=== PATIENT | male | born 1960 | race Caucasian/White ===

== ENCOUNTER 2020-03-10 23:29 | Observation (INO) ==
[2020-03-10] MEDS ORDERED: NITROGLYCERIN SL 0.4 MG/TAB TAB SL STA (23:45)
[2020-03-10] MEDS ORDERED: SODIUM CHLORIDE 0.9% 1000ML 1,000 ML IV ONE (23:45)
[2020-03-10] MEDS ORDERED: ASPIRIN 81 MG CHEW PO STA (23:45)
--- NOTE | 2020-03-10 23:50 | Emergency Department Note ---
Impression & Plan Left-sided chest pain, A-fib ED Provider Note Name: JOHAN MARCOS Age: 60 Sex: M Arrives Via: Walk-In Informant: Patient ED Provider: Roldan Montero MD Chief Complaint: Chest pain Impression: Left Sided Chest Pain A-Fib Medical Decision Makin yr old male with history paroxysmal Afib though no previous CAD/Stenting arrives with 3 days waxing/waning left chest pain associated with palpations. Chest pain resolved with several doses of SLNTG and placed nitro paste. Given ASA 324mg PO as well. CXR clear, EKG with afib no stemi x 2, labs with negative trop. He is on eliquis and I feel PE unlikely. Dissection not consistent with symptoms. With history will need cardiac rule out. Suspect given symptomatic afib may require cardioversion if doesn't break overnight though with pain controlled, normal trop and no Stemi I do not feel emergent cardioversion indicated at this time. Prior Medical Record and Triage/Nursing Notes reviewed by Me Additional history obtained from chart Differentials:Premature contractions, electrolyte abnormality, cardiac dysrhythmia, thyroid dysfunction, pulmonary embolism, infection, gastrointestinal, as well as other pathologies. Vital Signs: reviewed and remarkable for no significant abnormalities Interventions: saline lock, slntg x 3, nitrop paste, nss bolus Labs:Reviewed and remarkable for no significant abnormalities Imaging:X ray results are stated below per my interpretation: Chest: 1 view: No infiltrate, no effusion, normal cardiac border. EKG:Per My Interpretation: Indication Chest Pain: Afib 97 bpm, qtc [address] depression. No previous EKG for comparison. Cardiac/Tele Monitoring: Cardiac Monitoring: An Order was placed for continuous cardiac monitoring. The monitor shows a rate of 90 with a afib rhythm. Consults:Dr Erinn Elliott Hospitalist Plan: Disposition:Hospitalization. Condition: Good History of Present Illness:60 yr old male arrives for evaluation of chest pain. Patient notes 3 days of chest pains. Notes left tight chest pressure. Associated with palpitations similar to previous Afib. Seems worse with exertion, better with rest. Mild associated shortness of breath. No radiation of pain. No inciting incident. No new medications taken for this. He is on Tikosyn and Eliquis for his afib. Notes previous cardiac arrest though denies previous heart catheterizations. States he has felt well for some time until the last few days. No trauma nor injuries. Denies fevers, chills, syncope, headache, neck pain, rashes, leg swelling, calf pain, abdominal pain, urinary symptoms, nor other symptoms. Patient notes he is no usually in Afib and it has been some time since last irregular. ROS: See above HPI for pertinent positives & negatives. A total of 10 systems reviewed and were otherwise negative. Past Medical History:Afib, Hyperlipidemia Past Surgical History:Back surgery Family History:Father [place] 65yrs old Social History:Retired though still drives elderly to appointments, no etoh/drugs/tobacco Home Medications:Tikosyn, Eliquis, HLP medication Allergies:None Vitals:Blood Pressure: 97, Pulse 96, RR 16, T 36.5C, O2 95% on RA Physical Exam: GENERAL: Patient is anxious appearing and in mild distress. EYES: No scleral icterus, unremarkable pupils. ENT: Mucous membranes moist, no nasal congestion. NECK: No masses appreciated, nomeningismus, trachea is midline. RESPIRATORY: No dyspnea. Clear to auscultation and equal bilaterally. No wheeze, no rhonchi. CARDIOVASCULAR: Irregular.No murmurs, rubs, gallops appreciated. GASTROINTESTINAL: Abdomen soft, non-tender, no peritonitis.Bowel sounds positive.No masses appreciated. BACK: No midline tenderness, no CVA tenderness EXTREMITIES: Normal motion all extremities, no cyanosis, no edema. NEUROLOGIC: Alert and oriented, no acute motor or sensory deficits, no focal weakness, cranial nerves grossly intact. SKIN: No rash, no jaundice, no diaphoresis. PSYCH: Appropriate GCS: 15 ED Course: Times/Reassessments: Gradually improving pain, agreeable to hospitalization Roldan Montero MD Past Med/Surg History Social History Smoking Status: Never smoker Hx Alcohol Use: No Hx Substance Use: No Preferred Language: Lithuanian Communication Ability: Effective Beliefs That Will Affect Care: None Current Living Situation: Spouse Other Information That Helps Us Care for You: No Feels Safe at Home: Yes Safety Concerns: Feels Safe At This Time Assistive Devices: Glasses Allergies Allergies Allergy/AdvReac Type Severity Reaction Status Date / Time No Known Allergies Allergy Unverified 03/11/20 00:40 Home Meds Home Medications Medication Instructions Recorded Confirmed allopurinol 300 mg PO DAILY 03/11/20 03/11/20 apixaban [Eliquis] 5 mg PO BID 03/11/20 03/11/20 colchicine 0.6 mg PO BID PRN 03/11/20 03/11/20 dofetilide [Tikosyn] 125 mcg PO Q12H 03/11/20 03/11/20 furosemide [Lasix] 20 mg PO DAILY PRN 03/11/20 03/11/20 lisinopril 5 mg PO DAILY 03/11/20 03/11/20 metoprolol succinate [Toprol XL] 25 mg PO BID 03/11/20 03/11/20 omega-3 fatty acids [[place] 3 Fish 1,000 mg PO DAILY 03/11/20 03/11/20 Oil Concentrate] Results & Data (ED) Vital Signs Vital Signs - 24 hr 03/10/20 23:51 03/11/20 00:05 03/11/20 00:12 Pulse Rate 94 H 96 H Pulse Rate from SpO2 Sensor Respiratory Rate 19 20 Respiratory Effort / Characteristics Non-Labored Spontaneous Respiratory Depth Normal Blood Pressure 142/97 H 126/96 Blood Pressure Mean 112 106 Blood Pressure Position Sitting Pulse Oximetry 96 Oxygen Delivery Method Room Air Room Air Sepsis Recent Fever Within 48 Hours No Sepsis New/Unexplained Change in Mental Status No Sepsis Action Taken by Nursing No Action Required 03/11/20 00:30 03/11/20 00:49 03/11/20 01:00 Pulse Rate 98 H 98 H 86 Pulse Rate from SpO2 Sensor 90 99 H Respiratory Rate 19 18 19 Respiratory Effort / Characteristics Respiratory Depth Blood Pressure 125/85 129/86 117/79 Blood Pressure Mean 98 100 91 Blood Pressure Position Pulse Oximetry 97 95 Oxygen Delivery Method Sepsis Recent Fever Within 48 Hours Sepsis New/Unexplained Change in Mental Status Sepsis Action Taken by Nursing 03/11/20 01:30 03/11/20 02:00 03/11/20 02:14 Pulse Rate 80 88 Pulse Rate from SpO2 Sensor 67 79 Respiratory Rate 18 16 Respiratory Effort / Characteristics Respiratory Depth Blood Pressure 103/83 100/74 Blood Pressure Mean 89 82 Blood Pressure Position Pulse Oximetry 97 97 Oxygen Delivery Method Room Air Sepsis Recent Fever Within 48 Hours Sepsis New/Unexplained Change in Mental Status Sepsis Action Taken by Nursing Laboratory Data Result diagrams: 03/10/20 23:57 03/10/20 23:57 Lab Results 03/10/20 03/10/20 03/10/20 Range/Units 23:57 23:57 23:57 WBC 8.36 (4.8-10.8) K/uL RBC 5.67 (4.7-6.1) M/uL Hgb 17.6 (14.0-18.0) g/dL Hct 51.5 (42-52) % MCV 90.8 (80-100) fL MCH 31.0 (25-34) pg MCHC 34.2 (32-36) g/dL RDW Std Deviation 46.7 H (36.4-46.3) fL RDW Coeff of Mario 13.9 (11.5-14.5) % Plt Count 270 (130-400) K/uL MPV 11.2 H (7.4-10.4) fL Immature Gran % (Auto) 0.2 % Neut % (Auto) 43.8 % Lymph % (Auto) 41.1 % Atlantic % (Auto) 12.2 % Eos % (Auto) 2.3 % Baso % (Auto) 0.4 % Neut # (Auto) 3.66 (1.4-6.5) K/uL Lymph # (Auto) 3.44 H (1.2-3.4) K/uL [place] # (Auto) 1.02 H (0.11-0.59) K/uL Eos # (Auto) 0.19 (0-0.5) K/uL Baso # (Auto) 0.03 (0-0.2) K/uL Immature Gran # (Auto) 0.02 (0.00-0.02) K/uL PT 11.6 (9.0-12.0) Seconds INR 1.1 (0.9-1.1) APTT 29.0 (21.0-31.0) Seconds PTT Ratio 1.0 Sodium 144 (136-145) mmol/L Potassium 3.8 (3.5-5.1) mmol/L Chloride 110 H (98-107) mmol/L Carbon Dioxide 30 (21-32) mmol/L Anion Gap 4.0 (3-11) BUN 16 (7-18) mg/dl Creatinine 0.99 (0.6-1.4) mg/dl Est Cr Clr Drug Dosing 86.0 ml/min Est GFR ( Amer) 94.9 Est GFR (Non-Af Amer) 81.9 BUN/Creatinine Ratio 16.0 (10-20) Glucose 63 L (70-99) mg/dl Calcium 9.2 (8.5-10.1) mg/dl Magnesium 2.3 (1.8-2.4) mg/dl Total Bilirubin 0.6 (0.2-1) mg/dl Direct Bilirubin < 0.1 (0-0.2) mg/dl AST 22 (15-37) U/L ALT 45 (12-78) U/L Alkaline Phosphatase 109 (45-117) U/L Troponin I < 0.015 (0-0.045) ng/ml Total Protein 6.8 (6.4-8.2) gm/dl Albumin 3.8 (3.4-5.0) gm/dl TSH 2.870 (0.300-4.500) uIu/ml COVID-19 Eval Order SARS-CoV-2, RNA, NAAT (NEGATIVE) 03/11/20 03/11/20 Range/Units 00:20 00:20 WBC (4.8-10.8) K/uL RBC (4.7-6.1) M/uL Hgb (14.0-18.0) g/dL Hct (42-52) % MCV (80-100) fL MCH (25-34) pg MCHC (32-36) g/dL RDW Std Deviation (36.4-46.3) fL RDW Coeff of Mario (11.5-14.5) % Plt Count (130-400) K/uL MPV (7.4-10.4) fL Immature Gran % (Auto) % Neut % (Auto) % Lymph % (Auto) % Atlantic % (Auto) % Eos % (Auto) % Baso % (Auto) % Neut # (Auto) (1.4-6.5) K/uL Lymph # (Auto) (1.2-3.4) K/uL [place] # (Auto) (0.11-0.59) K/uL Eos # (Auto) (0-0.5) K/uL Baso # (Auto) (0-0.2) K/uL Immature Gran # (Auto) (0.00-0.02) K/uL PT (9.0-12.0) Seconds INR (0.9-1.1) APTT (21.0-31.0) Seconds PTT Ratio Sodium (136-145) mmol/L Potassium (3.5-5.1) mmol/L Chloride (98-107) mmol/L Carbon Dioxide (21-32) mmol/L Anion Gap (3-11) BUN (7-18) mg/dl Creatinine (0.6-1.4) mg/dl Est Cr Clr Drug Dosing ml/min Est GFR ( Amer) Est GFR (Non-Af Amer) BUN/Creatinine Ratio (10-20) Glucose (70-99) mg/dl Calcium (8.5-10.1) mg/dl Magnesium (1.8-2.4) mg/dl Total Bilirubin (0.2-1) mg/dl Direct Bilirubin (0-0.2) mg/dl AST (15-37) U/L ALT (12-78) U/L Alkaline Phosphatase (45-117) U/L Troponin I (0-0.045) ng/ml Total Protein (6.4-8.2) gm/dl Albumin (3.4-5.0) gm/dl TSH (0.300-4.500) uIu/ml COVID[facility]19 [facility], RNA, NAAT NEGATIVE (NEGATIVE) Administered Medications Discontinued Medications Aspirin (Aspirin 81 Mg Chew) 324 mg PO NOW STA Stop: 03/10/20 23:46 Last Admin: 03/11/20 00:08 Dose: 324 mg Documented by: [id number] Dextrose (Dextrose 50% 50 Ml Syringe) 50 ml IV NOW ONE Stop: 03/11/20 00:53 Last Admin: 03/11/20 01:01 Dose: Not Given Documented by: [id number] Dextrose (Dextrose 50% 50 Ml Syringe) 25 ml IV NOW ONE Stop: 03/11/20 00:56 Last Admin: 03/11/20 01:00 Dose: 25 ml Documented by: [id number] Sodium Chloride (Nss 1000ml) 1,000 mls @ 999 mls/hr IV .Q1H1M ONE Stop: 03/11/20 00:45 Last Infusion: 03/11/20 00:43 Dose: 0 mls/hr Documented by: [id number] Admin: 03/11/20 00:10 Dose: 999 mls/hr Documented by: [id number] Nitroglycerin (Nitroglycerin Sl 0.4 Mg/Tab Tab) 0.4 mg SL NOW STA Stop: 03/10/20 23:46 Last Admin: 03/11/20 00:09 Dose: 0.4 mg Documented by: [id number] Nitroglycerin (Nitroglycerin 2% Ointment 30gm Tube) 1 inch EXT NOW ONE Stop: 03/11/20 00:28 Last Admin: 03/11/20 00:43 Dose: 1 inch Documented by: [id number] Discharge Plan Visit Data Chief Complaint: Chest Pain Stated Complaint: CHEST PAIN; CARDIAC HISTORY ED Provider: Roldan Montero Discharge Problem: Left-sided chest pain, A-fib Patient Disposition: Admitted As Inpatient Discharge Instructions Interventions: ED Discharge Assessment Last Done: 03/11/20 02:14 Discharge Problem: A-fib Qualifiers: Atrial fibrillation type: paroxysmal Qualified Code(s): I48.0 - Paroxysmal atrial fibrillation
[2020-03-11 00:25] LABS: Basophils # (auto) 0.03 K/uL (0-0.2); Basophils % (auto) 0.4 %; Eosinophils # (auto) 0.19 K/uL (0-0.5); Eosinophils % (auto) 2.3 %; Hematocrit (blood only) 51.5 % (42-52); Hemoglobin 17.6 g/dL (14.0-18.0); Immature Granulocytes # (auto) 0.02 K/uL (0.00-0.02); Immature Granulocytes % (auto) 0.2 %; Lymphocytes # (auto) 3.44 K/uL (1.2-3.4); Lymphocytes % (auto) 41.1 %; Mean Corpuscular Hgb Conc 34.2 g/dL (32-36); Mean Corpuscular Volume 90.8 fL (80-100); Mean Platelet Volume 11.2 fL (7.4-10.4); Monocytes # (auto) 1.02 K/uL (0.11-0.59); Monocytes % (auto) 12.2 %; Neutrophils # (auto) 3.66 K/uL (1.4-6.5); Neutrophils % (auto) 43.8 %; Platelet Count 270 K/uL (130-400); RDW Coefficient of Variation 13.9 % (11.5-14.5); RDW Standard Deviation 46.7 fL (36.4-46.3); Red Blood Count 5.67 M/uL (4.7-6.1); White Blood Count 8.36 K/uL (4.8-10.8)
[2020-03-11] MEDS ORDERED: NITROGLYCERIN 2% OINTMENT 30GM TUBE EXT ONE (00:27)
[2020-03-11 00:34] LABS: INR 1.1 (0.9-1.1); Prothrombin Time 11.6 Seconds (9.0-12.0)
[2020-03-11 00:39] LABS: Alanine Aminotransferase 45 U/L (12-78); Albumin Level 3.8 gm/dl (3.4-5.0); Aspartate Aminotransferase 22 U/L (15-37); Bilirubin Direct < 0.1 mg/dl (0-0.2); Blood Urea Nitrogen 16 mg/dl (7-18); Calcium 9.2 mg/dl (8.5-10.1); Carbon Dioxide 30 mmol/L (21-32); Chloride 110 mmol/L (98-107); Est GFR (African American) 94.9; Est GFR (Non-African American) 81.9; Glucose 63 mg/dl (70-99); Magnesium 2.3 mg/dl (1.8-2.4); Potassium 3.8 mmol/L (3.5-5.1); Sodium 144 mmol/L (136-145)
[2020-03-11 00:50] LABS: Alkaline Phosphatase 109 U/L (45-117); Bilirubin,Total 0.6 mg/dl (0.2-1); Total Protein 6.8 gm/dl (6.4-8.2); Troponin I < 0.015 ng/ml (0-0.045)
[2020-03-11] MEDS ORDERED: DEXTROSE 50% 50 ML SYRINGE IV ONE ×2 (00:52→00:55)
[2020-03-11] MEDS ORDERED: NITROGLYCERIN SL 0.4 MG/TAB TAB SL PRN (02:32)
[2020-03-11] MEDS ORDERED: ACETAMINOPHEN 325 MG TAB PO PRN (02:32)
[2020-03-11] MEDS ORDERED: FUROSEMIDE 20 MG TAB PO PRN (02:32)
[2020-03-11 05:09] LABS: Basophils # (auto) 0.04 K/uL (0-0.2); Basophils % (auto) 0.5 %; Eosinophils # (auto) 0.11 K/uL (0-0.5); Eosinophils % (auto) 1.5 %; Hematocrit (blood only) 46.2 % (42-52); Hemoglobin 15.9 g/dL (14.0-18.0); Immature Granulocytes # (auto) 0.03 K/uL (0.00-0.02); Immature Granulocytes % (auto) 0.4 %; Lymphocytes # (auto) 2.85 K/uL (1.2-3.4); Lymphocytes % (auto) 38.7 %; Mean Corpuscular Hemoglobin 31.4 pg (25-34); Mean Corpuscular Hgb Conc 34.4 g/dL (32-36); Mean Corpuscular Volume 91.1 fL (80-100); Mean Platelet Volume 10.9 fL (7.4-10.4); Monocytes # (auto) 0.81 K/uL (0.11-0.59); Neutrophils # (auto) 3.53 K/uL (1.4-6.5); Neutrophils % (auto) 47.9 %; Platelet Count 235 K/uL (130-400); RDW Coefficient of Variation 13.9 % (11.5-14.5); RDW Standard Deviation 45.9 fL (36.4-46.3); Red Blood Count 5.07 M/uL (4.7-6.1); White Blood Count 7.37 K/uL (4.8-10.8)
[2020-03-11 05:33] LABS: Blood Urea Nitrogen 15 mg/dl (7-18); Calcium 8.4 mg/dl (8.5-10.1); Carbon Dioxide 32 mmol/L (21-32); Chloride 113 mmol/L (98-107); Est GFR (African American) 107.5; Est GFR (Non-African American) 92.7; Glucose 96 mg/dl (70-99); Magnesium 2.2 mg/dl (1.8-2.4); Potassium 3.9 mmol/L (3.5-5.1); Sodium 144 mmol/L (136-145)
[2020-03-11 05:38] LABS: Troponin I < 0.015 ng/ml (0-0.045)
[2020-03-11] MEDS ORDERED: DOFETILIDE 125 MCG CAPSULE PO SCH (06:00)
--- NOTE | 2020-03-11 07:02 | XRay Report ---
XR chest 1V portable CLINICAL HISTORY: Atypical chest pain COMPARISON STUDY: No previous studies for comparison. FINDINGS: The heart is enlarged. There is no overt failure. There is no lobar consolidation. Increase d basilar markings are likely atelectatic. There are no significant pleural effusions[ IMPRESSION: Cardiomegaly and minor basilar atelectasis ACT 112: Negative or not required by law. Electronically signed by: Gael Dow M.D. 03/11/2020 7:01 AM
[2020-03-11] MEDS ORDERED: lisinopril 5 MG TAB PO SCH (09:00)
[2020-03-11] MEDS ORDERED: allopurinoL 300 MG TAB PO SCH (09:00)
[2020-03-11] MEDS ORDERED: METOPROLOL SUCC 25MG EXT REL TAB PO SCH (09:00)
[2020-03-11] MEDS ORDERED: APIXABAN 5 MG TABLET PO SCH (09:00)
--- NOTE | 2020-03-11 09:20 | History and Physical Report ---
DATE OF ADMISSION: 03/11/2020 CHIEF COMPLAINT: Chest pain. HISTORY OF PRESENT ILLNESS: This is a 60-year-old male with past medical history significant for hyperlipidemia, dyspnea on exertion, atrial fibrillation, history of systolic heart failure, cardiomyopathy, history of lumbar disk herniation with radiculopathy, who presents with chest pain. The patient has been having chest pain in the left side for the last 2-3 days, but yesterday it got worse. No radiation, not associated with any nausea or dizziness or sweating, no shortness of breath. In the ER pain was intially 8/10 in severity, after nitro it has come 6/10. Currently resting comfortably and hemodynamically stable. Denies any cough, no fever, no chills, no headache, no blurred vision, no earache, no runny nose, no sore throat, no loss of sense of smell or taste. No nausea, no abdominal pain. Normal bowel and bladder movements. ALLERGIES: No known drug allergies. PAST MEDICAL HISTORY: As mentioned above. PAST SURGICAL HISTORY: Colonoscopies, colonoscopy with biopsies, lumbar laminectomy, lumbar hemilaminectomy, tonsillectomy. MEDICATIONS: The patient is on allopurinol 10 mg p.o. daily, Eliquis 5 mg p.o. b.i.d., Tikosyn 125 mcg p.o. q.12 hours, Lasix 20 mg p.o. daily p.r.n., lisinopril 5 mg p.o. daily, metoprolol succinate 25 mg p.o. b.i.d., omega fatty acids 1 gram p.o. daily. FAMILY HISTORY: No family history in file. SOCIAL HISTORY: . No smoking. Alcohol occasional. No drug use. REVIEW OF SYMPTOMS: As per HPI. Rest of review of systems negative. PHYSICAL EXAMINATION: GENERAL: The patient is of moderate build, not in acute distress. VITAL SIGNS: Temperature 36.5, pulse 58, respiratory rate 18, blood pressure 100/65, oxygen 95% on room air. HEENT: Pupils equal, round, reactive to light. Oral mucosa moist. NECK: No JVD. No neck masses. CARDIOVASCULAR: S1, S2, regular rate and rhythm, no murmur, no gallop. RESPIRATORY SYSTEM: Normal AP diameter. No accessory muscle use. No wheezing, no crackles. ABDOMEN: Soft, bowel sounds present, nontender. No distention. CENTRAL NERVOUS SYSTEM: Cranial nerves II-XII grossly intact. Nonfocal. EXTREMITIES: No edema, no erythema. LABORATORY DATA: WBC 7.3, hemoglobin 15.9, hematocrit 46.2, platelets 235. PT 11.6, INR 1.1, APTT 29. Sodium 144, potassium 3.9, chloride 113, CO2 32, BUN 15, creatinine 0.8, serum glucose 96, calcium 8.4, magnesium 2.2, total bilirubin 0.6, direct bilirubin less than 0.1, AST 22, ALT 45, alkaline phosphatase 109. Troponin I less than 0.015. TSH 2.8. SARS-CoV-2 RNA negative. Chest x-ray, cardiomegaly and minor bibasilar atelectasis. EKG: Atrial fibrillation, rate 88, nonspecific, no acute ST changes seen. ASSESSMENT AND PLAN: This 60-year-old male presents with chest pain. 1. Chest pain, rule out acute coronary syndrome. Initial workup is negative. We will follow serial enzymes, echo and keep n.p.o. and consult cardiology in a.m. for further recommendations. 2. History of atrial fibrillation, continue his Tikosyn , Toprol xl and Eliquis. EKG shows patient is in atrial fibrillation, rate controlled. We will monitor in tele. 3. History of systolic congestive heart failure and dilated cardiomyopathy. Recent echo in 08/2018 EF was 55%. The patient is on Lasix p.r.n. and on lisinopril and Toprol-XL. 4. Deep venous thrombosis prophylaxis, on Eliquis. DISPOSITION: Observation in tele floor. Expect to discharge home and follow with family doctor. GUILLAUME
--- NOTE | 2020-03-11 09:34 | Cardiology Consultation ---
Date of Consultation Patient was admitted with chest discomfort and palpitations consistent with atrial fibrillation. His chest discomfort is very similar to what he had with his previous episodes of pericarditis. His chest pain is worse lying flat or on his left side or taking a deep breath. It started over the weekend and became more progressive yesterday at work. He also noted palpitations in the afternoon which was unusual for him. He has not had any symptomatic episodes of atrial fibrillation since he was at [facility]. He denies any shortness of breath. He denies any presyncope syncope or falls he had some mild lightheadedness yesterday. He denies a cough fevers chills or sweats. He denies any sick contacts. He did have his first Covid vaccine ([place]) approximately 3 weeks ago without any side effects. He denies any bleeding or bruising dark stools or black stools. His appetite and weight have been stable. March 11, 2020 History of Present Illness Attending Physician: Abhishek Aldana MD Allergies Allergy/AdvReac Type Severity Reaction Status Date / Time No Known Allergies Allergy Unverified 03/11/20 00:40 Home Medications Medication Instructions Recorded Confirmed Type allopurinol 300 mg PO DAILY 03/11/20 03/11/20 History apixaban [Eliquis] 5 mg PO BID 03/11/20 03/11/20 History colchicine 0.6 mg PO BID PRN 03/11/20 03/11/20 History dofetilide [Tikosyn] 125 mcg PO Q12H 03/11/20 03/11/20 History furosemide [Lasix] 20 mg PO DAILY PRN 03/11/20 03/11/20 History lisinopril 5 mg PO DAILY 03/11/20 03/11/20 History metoprolol succinate [Toprol XL] 25 mg PO BID 03/11/20 03/11/20 History omega-3 fatty acids [[place] 3 Fish 1,000 mg PO DAILY 03/11/20 03/11/20 History Oil Concentrate] Patient History Social History Smoking Status: Never smoker Hx Alcohol Use: No Hx Substance Use: No Preferred Language: Guyanese Communication Ability: Effective Beliefs That Will Affect Care: None Current Living Situation: Spouse Other Information That Helps Us Care for You: No Feels Safe at Home: Yes Safety Concerns: Feels Safe At This Time Assistive Devices: Glasses Results & Data ([facility]) Vital Signs (Past 12 Hours) Vital Signs Temp Pulse Pulse Resp BP BP Pulse Ox 03/11/20 08:04 58 L 0 L 100/65 03/11/20 08:00 36.8 C 58 L 18 03/11/20 07:58 59 L 14 97/71 L 03/11/20 07:55 58 L 20 84/55 L 03/11/20 07:30 59 L 17 03/11/20 07:29 60 20 97/65 L 03/11/20 07:21 81 20 96/66 L 03/11/20 07:00 82 20 03/11/20 05:28 73 14 94/55 L 03/11/20 05:00 77 16 03/11/20 04:30 69 16 03/11/20 04:28 73 15 93/55 L 03/11/20 03:30 79 21 03/11/20 03:24 75 03/11/20 02:34 36.5 C 74 16 114/79 95 03/11/20 02:00 88 16 100/74 97 03/11/20 01:30 80 18 103/83 97 03/11/20 01:00 86 19 117/79 95 03/11/20 00:49 98 H 18 129/86 97 03/11/20 00:30 98 H 19 125/85 03/11/20 00:12 96 H 20 126/96 03/10/20 23:51 94 H 19 142/97 H 96 he is awake alert and oriented x3 is in no acute distress HEENT: 2+ carotid upstrokes no evidence of carotid bruits, jugular venous pressure appeared normal Lungs: Decreased breath sounds in the right base otherwise clear to auscultation bilaterally no rales rhonchi or wheezing Heart: Regular rate and rhythm no appreciable murmurs rubs or gallops Abdomen: Soft nontender distended positive bowel sounds Extremities: No clubbing cyanosis or edema Psychiatric he appeared anxious EKG this morning normal sinus rhythm normal ECG, his QTC on Tikosyn is normal Echocardiogram this morning normal biventricular size and function trace apical pericardial effusion His labs were reviewed in detail Chest x-ray no active disease next IMPRESSIONS: 1. Recurrent pericarditis of unclear etiology 2. Paroxysmal atrial fibrillation which was rate controlled possibly exacerbated by pericarditis now with samaritan of sinus rhythm 3. History of nonischemic cardiomyopathy secondary to asymptomatic atrial fibrillation 4. Resolution of his severe nonischemic cardiomyopathy now with normal LV function 5. Chronic anticoagulation with apixaban He converted overnight back to sinus rhythm he was bradycardic when he first converted this morning. We'll discontinue his Nitropaste. This allowed his blood pressure come up. We'll add colchicine 0.6 mg twice daily x2 weeks and then reduce it to 0.6 mg daily thereafter. I did discuss and he should take his colchicine with food. He'll remain on the rest of his medical regimen. If he has any lightheadedness or dizziness we'll have to reduce his lisinopril dose. At this point he has no signs or symptoms of bleeding. As I discussed with Hubert and his by phone and I think the pericarditis contributed to his atrial fibrillation. In addition given the fact that his A. fib was well controlled from a rate standpoint that the chance of having a tachycardia induced cardiomyopathy is very small. His carotid upstroke was normal and his echo this morning reveals normal LV function. If you would have more frequent atrial fibrillation we would need to consider an A. fib ablation and I did discuss with them in detail the risks and benefits of A. fib ablation understanding that an A. fib ablation is far from perfect. As an outpatient we will do a work-up to include a sed rate CRP NEELAM just to rule out an autoimmune cause for his recurrent pericarditis. This was all discussed with the nursing staff
[2020-03-11] MEDS ORDERED: COLCHICINE 0.6 MG TAB PO SCH (09:45)
--- NOTE | 2020-03-11 11:23 | Electrocardiogram Report ---
Test Reason : Blood Pressure : / mmHG Vent. Rate : 088 BPM Atrial Rate : 117 BPM P-R Int : 000 ms QRS Dur : 092 ms QT Int : 372 ms P-R-T Axes : 000 032 056 degrees QTc Int : 450 ms Atrial fibrillation Abnormal ECG When compared with ECG of 10-MAR-2020 23:36, (unconfirmed) Nonspecific T wave abnormality no longer evident in Inferior leads Confirmed by Edmundo Salazar ([id number]) on 03/11/2020 11:23:11 AM Referred By: REFERRED SELF Confirmed By:Misael Salazar
--- NOTE | 2020-03-11 11:23 | Electrocardiogram Report ---
Test Reason : Blood Pressure : / mmHG Vent. Rate : 097 BPM Atrial Rate : 163 BPM P-R Int : 000 ms QRS Dur : 098 ms QT Int : 358 ms P-R-T Axes : 000 027 035 degrees QTc Int : 454 ms Atrial fibrillation Nonspecific T wave abnormality Abnormal ECG No previous ECGs available Confirmed by Edmundo Salazar ([id number]) on 03/11/2020 11:23:17 AM Referred By: REFERRED SELF Confirmed By:Misael Salazar
--- NOTE | 2020-03-11 11:30 | Electrocardiogram Report ---
Test Reason : Blood Pressure : / mmHG Vent. Rate : 056 BPM Atrial Rate : 056 BPM P-R Int : 186 ms QRS Dur : 092 ms QT Int : 462 ms P-R-T Axes : 023 049 061 degrees QTc Int : 445 ms Sinus bradycardia When compared with ECG of 11-MAR-2020 00:28, (unconfirmed) Sinus rhythm has replaced Atrial fibrillation Confirmed by Edmundo Salazar ([id number] on 03/11/2020 11:30:40 AM Referred By: REFERRED SELF Confirmed By:Misael Salazar
--- NOTE | 2020-03-11 12:21 | Hospitalist Progress Note ---
Date of Service March 11, 2020 Assessment & Plan (1) Acute pericarditis: He was admitted with precordial chest pain which is worse with lying flat and lying on the left side Likely secondary to pericarditis Appreciate cardiology input and recommendation Colchicine has been prescribed and will be continued as recommended (2) Left-sided chest pain: No evidence of ACS Echo of the heart showed: A. fib with ventricular rate in the range of 7019 bpm, mild concentric LVH, LV wall motion is normal, systolic function is normal, EF of 55 to 60%, RV is normal in size and function, there is trace loculated anterior pericardial effusion, there is no significant valvular heart disease (3) A-fib: History of paroxysmal atrial fibrillation Reverted to sinus rhythm (4) Nonischemic cardiomyopathy: History of nonischemic cardiomyopathy EF seems to be normal DVT prophylaxis On Eliquis CODE STATUS Full Will be discharged home this afternoon Admission and Anticipated Discharge Date Admission Date: March 11, 2020 Subjective 03/11/2020 The patient was seen and examined in ICU with telemetry status He was admitted with chest pain and ACS has been ruled out He has not been having any pain since admission Denies any other symptoms Review of Systems Review of Systems: All systems reviewed and are unremarkable except as noted below Cardiovascular: + chest pain (Worse with leaning forward) and + palpitations; no dyspnea at rest Physical Exam Physical Exam: Lying in bed comfortably Constitutional: well developed and well nourished; not ill appearing Eyes: PERRL, conjunctivae normal, anicteric sclerae ENMT: external ear and nose normal, oropharynx normal Neck: trachea midline, no thyromegaly Respiratory: normal respiratory effort; no respiratory distress Auscultation: lungs clear to auscultation bilaterally Cardiovascular: Rate/Rhythm: regular rate and regular rhythm Heart Sounds: no murmur Extremities: no edema Gastrointestinal (Abdomen): Inspection/Auscultation: normal bowel sounds; abdomen not distended Percussion/Palpation: abdomen soft; abdomen nontender Musculoskeletal: No acute arthritis in any joint Neurologic: Alert, awake and oriented x3. No focal sensory and motor deficit appreciated Psychiatric: A+Ox3, euthymic affect Lymphatic: no cervical or axillary lymphadenopathy Results & Data Results & Data ([facility]) Vital Signs (Past 12 Hours) Vital Signs Temp Pulse Pulse Resp BP BP Pulse Ox 03/11/20 11:00 37.0 C 68 68 20 117/76 97 03/11/20 08:04 58 L 0 L 100/65 03/11/20 08:00 36.8 C 58 L 18 03/11/20 07:58 59 L 14 97/71 L 03/11/20 07:55 58 L 20 84/55 L 03/11/20 07:30 59 L 17 03/11/20 07:29 60 20 97/65 L 03/11/20 07:21 81 20 96/66 L 03/11/20 07:00 82 20 03/11/20 05:28 73 14 94/55 L 03/11/20 05:00 77 16 03/11/20 04:30 69 16 03/11/20 04:28 73 15 93/55 L 03/11/20 03:30 79 21 03/11/20 03:24 75 03/11/20 02:34 36.5 C 74 16 114/79 95 03/11/20 02:00 88 16 100/74 97 03/11/20 01:30 80 18 103/83 97 03/11/20 01:00 86 19 117/79 95 03/11/20 00:49 98 H 18 129/86 97 03/11/20 00:30 98 H 19 125/85 Laboratory Results Short CBC 03/10/20 03/11/20 Range/Units 23:57 04:59 WBC 8.36 7.37 (4.8-10.8) K/uL Hgb 17.6 15.9 (14.0-18.0) g/dL Hct 51.5 46.2 (42-52) % Plt Count 270 235 (130-400) K/uL BMP 03/10/20 03/11/20 23:57 04:59 Sodium 144 144 Potassium 3.8 3.9 Chloride 110 H 113 H Carbon Dioxide 30 32 BUN 16 15 Creatinine 0.99 0.88 Glucose 63 L 96 Calcium 9.2 8.4 L Cardiac Enzymes 03/10/20 03/11/20 03/11/20 Range/Units 23:57 04:59 08:51 Troponin I < 0.015 < 0.015 < 0.015 (0-0.045) ng/ml Liver Function 03/10/20 Range/Units 23:57 Total Bilirubin 0.6 (0.2-1) mg/dl Direct Bilirubin < 0.1 (0-0.2) mg/dl AST 22 (15-37) U/L ALT 45 (12-78) U/L Alkaline Phosphatase 109 (45-117) U/L Albumin 3.8 (3.4-5.0) gm/dl Medications Administered Current Inpatient Medications Acetaminophen (Acetaminophen 325 Mg Tab) 650 mg PO Q4H PRN PRN Reason: Pain or Fever Stop: 04/10/20 02:31 Allopurinol (Allopurinol 300 Mg Tab) 300 mg PO DAILY RANJITH Stop: 04/10/20 08:59 Last Admin: 03/11/20 09:35 Dose: 300 mg Documented by: Apixaban (Apixaban 5 Mg Tablet) 5 mg PO BID RANJITH Stop: 04/10/20 08:59 Last Admin: 03/11/20 09:35 Dose: 5 mg Documented by: Colchicine (Colchicine 0.6 Mg Tab) 0.6 mg PO BID RANJITH Stop: 04/10/20 09:44 Last Admin: 03/11/20 10:16 Dose: 0.6 mg Documented by: Dofetilide (Dofetilide 125 Mcg Capsule) 125 mcg PO Q12H RANJITH Stop: 04/10/20 05:59 Last Admin: 03/11/20 06:30 Dose: 125 mcg Documented by: Furosemide (Furosemide 20 Mg Tab) 20 mg PO DAILY PRN PRN Reason: wt gain 3 lb/24hr Stop: 04/10/20 02:31 Lisinopril (Lisinopril 5 Mg Tab) 5 mg PO DAILY RANJITH Stop: 04/10/20 08:59 Last Admin: 03/11/20 09:35 Dose: 5 mg Documented by: Metoprolol Succinate (Metoprolol Succ 25mg Ext Rel Tab) 25 mg PO BID RANJITH Stop: 04/10/20 08:59 Last Admin: 03/11/20 09:35 Dose: 25 mg Documented by: Nitroglycerin (Nitroglycerin Sl 0.4 Mg/Tab Tab) 0.4 mg SL UD PRN PRN Reason: Chest Pain Stop: 04/10/20 02:31 (1) A-fib Atrial fibrillation type: paroxysmal Qualified Code(s): I48.0 - Paroxysmal atrial fibrillation
--- NOTE | 2020-03-12 08:34 | Discharge Summary ---
Date of Service March 12, 2020 Admission HPI Per Admitting Provider DICTATED BY: Timothy Plasencia MD DATE OF ADMISSION: 03/11/2020 CHIEF COMPLAINT: Chest pain. HISTORY OF PRESENT ILLNESS: This is a 60-year-old male with past medical history significant for hyperlipidemia, dyspnea on exertion, atrial fibrillation, history of systolic heart failure, cardiomyopathy, history of lumbar disk herniation with radiculopathy, who presents with chest pain. The patient has been having chest pain in the left side for the last 2-3 days, but yesterday it got worse. No radiation, not associated with any nausea or dizziness or sweating, no shortness of breath. In the ER pain was intially 8/10 in severity, after nitro it has come 6/10. Currently resting comfortably and hemodynamically stable. Denies any cough, no fever, no chills, no headache, no blurred vision, no earache, no runny nose, no sore throat, no loss of sense of smell or taste. No nausea, no abdominal pain. Normal bowel and bladder movements. Admission Exam Per Admitting Provider GENERAL: The patient is of moderate build, not in acute distress. VITAL SIGNS: Temperature 36.5, pulse 58, respiratory rate 18, blood pressure 100/65, oxygen 95% on room air. HEENT: Pupils equal, round, reactive to light. Oral mucosa moist. NECK: No JVD. No neck masses. CARDIOVASCULAR: S1, S2, regular rate and rhythm, no murmur, no gallop. RESPIRATORY SYSTEM: Normal AP diameter. No accessory muscle use. No wheezing, no crackles. ABDOMEN: Soft, bowel sounds present, nontender. No distention. CENTRAL NERVOUS SYSTEM: Cranial nerves II-XII grossly intact. Nonfocal. EXTREMITIES: No edema, no erythema. Principal Diagnosis Acute recurrent pericarditis, chest pain-ACS has been ruled out, paroxysmal atrial fibrillation, nonischemic cardiomyopathy Discharge Exam Constitutional well developed and well nourished; not ill appearing Eyes PERRL, conjunctivae normal, anicteric sclerae ENMT external ear and nose normal, oropharynx normal Neck trachea midline, no thyromegaly Respiratory normal respiratory effort; no respiratory distress Auscultation: lungs clear to auscultation bilaterally Cardiovascular Rate/Rhythm: regular rate and regular rhythm Heart Sounds: no murmur Extremities: no edema Gastrointestinal (Abdomen) Inspection/Auscultation: normal bowel sounds; abdomen not distended Percussion/Palpation: abdomen soft; abdomen nontender Psychiatric A+Ox3, euthymic affect Lymphatic no cervical or axillary lymphadenopathy Discharge Data Allergies Allergy/AdvReac Type Severity Reaction Status Date / Time No Known Allergies Allergy Unverified 03/11/20 00:40 Consultations 03/11/20 01:12 ED Decision to Admit Stat 03/11/20 02:32 Consult Case Management - Discharge Planning Routine 03/11/20 08:00 Consult Cardiology Routine Hospital Course (1) Acute pericarditis: He was admitted with precordial chest pain which is worse with lying flat and lying on the left side Likely secondary to pericarditis Appreciate cardiology input and recommendation Colchicine has been prescribed and will be continued as recommended (2) Left-sided chest pain: No evidence of ACS Echo of the heart showed: A. fib with ventricular rate in the range of 7019 bpm, mild concentric LVH, LV wall motion is normal, systolic function is normal, EF of 55 to 60%, RV is normal in size and function, there is trace loculated anterior pericardial effusion, there is no significant valvular heart disease (3) A-fib: History of paroxysmal atrial fibrillation Reverted to sinus rhythm (4) Nonischemic cardiomyopathy: History of nonischemic cardiomyopathy EF seems to be normal DVT prophylaxis On Eliquis CODE STATUS Full Will be discharged home this afternoon Total Time Total Time Spent Total Time Spent (In Minutes): 35 minutes Total Time Includes: Examination of the Patient, Discharge Planning, Medication Reconciliation and Communication With Other Providers Discharge Plan Discharge Items Patient Disposition: Home - Self-Care Reason For Visit: CHEST PAIN Discharge Diagnosis: Acute recurrent pericarditis, chest pain-ACS has been ruled out, paroxysmal atrial fibrillation, nonischemic cardiomyopathy Condition on Discharge: Fair Activity: Resume your previous activity Non-emergency contact: Primary Care Provider Call non-emergency contact if: you have any medication questions and your symptoms worsen Follow-up/Referrals: Cale Ward PA-C [Primary Care Provider] - (Date & Time 03/18/2020 11:00 AM Provider Cale Ward PA-C Department [facility] ) Diet: Heart Healthy Addtl Attending Provider Instructions: Please take your new medications as prescribed Please keep appointment with your primary care physician and the leveler helper Pending Studies at Discharge: No Stand-Alone Forms: My [facility], Smoking Cessation Medications and DC Order Prescriptions: New colchicine [Colcrys] 0.6 mg Tablet 0.6 mg PO BID Qty: 30 RF: 0 Continued allopurinol 300 mg Tablet 300 mg PO DAILY RF: 0 lisinopril 5 mg Tablet 5 mg PO DAILY RF: 0 metoprolol succinate [Toprol XL] 25 mg Tablet Extended Release 24 Hr 25 mg PO BID RF: 0 Eliquis 5 mg Tablet 5 mg PO BID RF: 0 dofetilide [Tikosyn] 125 mcg Capsule 125 mcg PO Q12H RF: 0 omega-3 fatty acids Capsule 1,000 mg PO DAILY RF: 0 furosemide [Lasix] 20 mg Tablet 20 mg PO DAILY PRN (Reason: wt gain 3 lb/24hr) RF: 0 colchicine 0.6 mg Capsule 0.6 mg PO BID PRN (Reason: Chest Pain) RF: 0 Discharge Orders: Discharge Order (Routine); Ordered 03/11/20 Ordered By: Abhishek Ramos/Other Patient Handouts: Pericarditis, Colchicine tablets or capsules Admission Data Admit Date/Time: 03/11/20 02:25 Attending Provider: Abhishek Aldana Admit Provider: Timothy Plasencia Primary Care Provider: Cale Ward Other Providers: Timothy Plasencia ; Bob Arce Other Interventions: Discharge Summary Assessment (RN) Last Done: 03/11/20 15:02
== END 2020-03-11 16:36 | disposition home or self-care (01) ==
LOC: ED 23:29 → 1E 23:29